=== PATIENT | male | born 1950 | race Caucasian/White ===

== ENCOUNTER 2016-08-11 10:47 | Outpatient (CLI) | payer MEDICARE, OTHER | END 2016-08-11 10:48 | disposition home or self-care (01) | DX: G47.33 Obstructive sleep apnea (adult) (pediatric) (principal) | CPT/HCPCS: 99214; G0463 ==

== ENCOUNTER 2017-12-15 13:28 | Outpatient (CLI) | payer MEDICARE, OTHER | END 2017-12-15 13:29 | disposition home or self-care (01) | LOC: SC 13:28 | PROVIDERS: ATTEND Nurse Practitioner Family | DX: G47.33 Obstructive sleep apnea (adult) (pediatric) (principal); I10 Essential (primary) hypertension; K21.9 Gastro-esophageal reflux disease without esophagitis | CPT/HCPCS: 99214; G0463; 99212 ==

== ENCOUNTER 2018-10-25 10:14 | Outpatient (CLI) | payer MEDICARE, OTHER | END 2018-10-25 10:15 | disposition home or self-care (01) | LOC: SC 10:14 | PROVIDERS: ATTEND Nurse Practitioner Family | DX: G47.33 Obstructive sleep apnea (adult) (pediatric) (principal) | CPT/HCPCS: 99214; G0463; 99212 ==

== ENCOUNTER 2021-05-07 13:06 | Outpatient (CLI) | payer MEDICARE, OTHER ==
[2021-05-07 13:48] VITALS: BP 134/73
--- NOTE | 2021-05-07 13:48 | SLEEP CARE CONSULTATION ---
Information from patient questionnaire entered by Liza Dominguez. I have reviewed and concur with the information entered by Liza Dominguez. This document represents the service I personally performed and the decisions made by , Trinidad Luong ARNP. History of Present Illness Service Date and Time: 05/07/2021 1306 Previous diagnosis: Mild, Obstructive Sleep Apnea-Hypopnea Syndrome AHI: 8.1 Reason for follow up: annual Equipment type: CPAP Equipment obtained from: [facility] (getting supplies as needed) Mask style: Nasal Backup mask available: Yes (old mask) Last cushion change: Wednesday Prior sleep studies: Yes Year and Where: 2014 [facility] Type of Sleep Study: Polysomnography HPI additional information: GHADA VARGHESE was diagnosed to have mild, AHI 8.1, obstructive sleep apnea- hypopnea syndrome and returned today for CPAP therapy annual follow-up. Sleep Study - Results Prior sleep studies: Yes Year and Where: 2014 [facility] CPAP Compliance Data - Data Reviewed with Patient Average duration of nightly device use: 8 hours 17 minutes Compliance rate %: 98.9 Current pressure setting (cmH2O): 7 Humidity settin Average residual AHI: 1.1 Average large leak: 3 seconds Subjective Missed days of use due to: reports: travel Patient concerns: denies: aerophagia, mask discomfort, air blowing in eyes, mask leak noise, condensation in mask/hose, nasal congestion, dry mouth, nose, throat, epistaxis, other Observed to snore while using device: No Current pressure setting perceived as: comfortable On therapy, patient: reports: sleeping better, awakening more refreshed, being more awake and alert during the day, more rested overall. denies: drowsiness while driving Initial [place] Sleepiness Scale score: 11 Current [place] Sleepiness Scale score: 4 Allergies and Home Medications Home medication list reviewed: Yes (Amlodipine 5 mg) Review of Systems Review of systems same as previous: Yes (Knee replacement in May 2021) Physical Exam Blood Pressure: 134/73 Cuff size: wrist Heart Rate: 52 O2 Saturation: 98 Height: 5 ft 7 in Weight: 180 lb (with clothes/shoes) Body Mass Index: 28.1 BMI Classification: Overweight Impression and Plan 1. Obstructive Sleep Apnea-Hypopnea Syndrome, mild, with good treatment compliance and good apnea control. On CPAP therapy, the patient has better sleep quality and is more rested overall. Patient has no issues or concerns with CPAP use and is very satisfied with his CPAP therapy. I informed the patient that [employer] has a recall on several devices like the patients machine. Patient was encouraged to register their device online with [employer] for the recall to see if their device is affected. If their device is affected they should start a claim. Patient denies any black particles seen in machine or hoses, any unusual odors coming from device. Patient has not experienced any physical symptoms such as upper airway irritation, headache, skin or eye irritation, asthma, nausea/vomiting, difficulty breathing or chest pain. Patient informed that they may use an inline CPAP filter that they can obtain online to reduce chance of any particles being inhaled or ingested. We discussed thoroughly the health risks of not using the CPAP versus continuing use with the filter in place. If patient is not able to sleep due to waking up choking, gasping for air or other respiratory distress that they may decide to continue using it until it is either replaced or repaired. Since the patients current machine is at least 5 years old the patient is opting to update their device with a device that is not on the recall. Patient was encouraged to lose weight for their overall health and to reduce apneas. Patient voiced understanding and agreement with plan. Patient's apnea severity and rationale for treatment to reduce apnea, improve sleep quality and reduce cardiovascular and cerebrovascular events was reviewed. I also reviewed the benefit of consistent device use of CPAP for hypertension. * Continue CPAP pressure at 7 cmH2O * Update device * Update supplies * Notify me if snoring with mask or feeling that the pressure is too much or too little * Attempt to lose weight * Call this office if any problems using CPAP * Return for follow up one month after obtaining new device, or sooner if concerns arise Counseling Topics: Spare mask, Weight loss health impact Visit Type: In Office Time Spent with Patient (minutes): 21 Provider Statement: I spent 100% of the Face to Face Visit with the patient with greater than 50% spent counseling the patient and coordination of care.
== END 2021-05-07 13:07 | disposition home or self-care (01) ==
LOC: SC 13:06
PROVIDERS: ATTEND Nurse Practitioner Family
DX: G47.33 Obstructive sleep apnea (adult) (pediatric) (principal)
CPT/HCPCS: 99213; G0463; 99212

== ENCOUNTER 2022-10-22 13:33 | Outpatient (CLI) | payer MEDICARE, OTHER ==
[2022-10-22 14:06] VITALS: BP 128/64
--- NOTE | 2022-10-22 14:06 | SLEEP CARE CONSULTATION ---
Information from patient questionnaire entered by Klaudia Rogers. I have reviewed and concur with the information entered by Klaudia Rogers. This document represents the service I personally performed and the decisions made by me, Trinidad Luong ARNP. History of Present Illness Service Date and Time: 10/22/2022 1333 Previous diagnosis: Mild, Obstructive Sleep Apnea-Hypopnea Syndrome AHI: 8.1 Reason for follow up: annual (LAST SEEN 04/2021) Equipment type: CPAP (Resmed Airsense 11 s/u 06/2021) Equipment obtained from: Other ([facility]; getting supplies as needed) Mask style: Nasal Mask brand: Respironics (Dreamwear) Backup mask available: Yes (old mask) Last cushion change: 1 week, every Wednesday Prior sleep studies: Yes Year and Where: 2014 [facility] Type of Sleep Study: Polysomnography HPI additional information: GHADA VARGHESE was diagnosed to have mild, AHI 8.1, obstructive sleep apnea- hypopnea syndrome and returned today for CPAP therapy annual follow-up. Sleep Study - Results Type of Sleep Study: Polysomnography Prior sleep studies: Yes Year and Where: 2014 [facility] CPAP Compliance Data - Data Reviewed with Patient Average duration of nightly device use: 8 hours 52 minutes Compliance rate %: 99 (180/180 day used) Current pressure setting (cmH2O): 7 Average residual AHI: 0.6 Central apnea: 0.2 Obstructive apnea: 0.2 Hypopnea: 0.2 Average large leak: 0.6 L/min Subjective Patient concerns: reports: mask leak noise. denies: aerophagia, mask discomfort, air blowing in eyes, condensation in mask/hose, nasal congestion, dry mouth, nose, throat, epistaxis Observed to snore while using device: No Current pressure setting perceived as: comfortable On therapy, patient: reports: sleeping better, awakening more refreshed, being more awake and alert during the day, more rested overall. denies: drowsiness while driving Initial [place] Sleepiness Scale score: 11 Current [place] Sleepiness Scale score: 5 (10/22/22) Allergies and Home Medications Known drug allergies: Yes (loperamide) Drug allergies reviewed: Yes Home medication list reviewed: Yes (magnesium) Review of Systems Review of systems same as previous: No (bilateral cataracts removed; New right knee 18 months ago) Physical Exam Vital signs obtained and entered by: KLAUDIA Jaramillo MA Blood Pressure: 128/64 (LEFT ARM) Cuff size: regular Heart Rate: 53 O2 Saturation: 98 Height: 5 ft 7 in Weight: 187 lb 12.8 oz Body Mass Index: 29.4 BMI Classification: Overweight Impression and Plan 1. Obstructive Sleep Apnea-Hypopnea Syndrome, mild, with good treatment compliance and good apnea control. On CPAP therapy, the patient has better sleep quality and is more rested overall. Patient has significant improvement of their sleep apnea and is satisfied with current CPAP therapy. Patient denies problems with oral dryness, nasal congestion, epistaxis, skin irritation or aerophagia. I will update prescription for supplies and we will follow up with him next year. Patient's apnea severity and rationale for treatment to reduce apnea, improve sleep quality and reduce cardiovascular and cerebrovascular events was reviewed. I also reviewed the benefit of consistent device use of CPAP for hypertension. 2. Overweight, unspecified. Currently patients BMI is 29.4. Obesity increases the risk of apnea, CPAP pressure requirements and overall health risks especially cardiovascular and diabetes. Thus patient is advised to continue to try to lose weight. * Continue CPAP pressure at 7 cmH2O * Update supplies * Notify me if snoring with mask or feeling that the pressure is too much or too little * Attempt to lose weight * Call this office if any problems using CPAP * Return for follow up in 1 year, or sooner if concerns arise Counseling Topics: Spare mask, Weight loss health impact Visit Type: In Office Time Spent with Patient (minutes): 10 Provider Statement: I spent 100% of the Face to Face Visit with the patient with greater than 50% spent counseling the patient and coordination of care.
== END 2022-10-22 13:34 | disposition home or self-care (01) ==
LOC: SC 13:33
PROVIDERS: ATTEND Nurse Practitioner Family
DX: G47.33 Obstructive sleep apnea (adult) (pediatric) (principal); E66.3 Overweight; Z68.29 Body mass index [BMI] 29.0-29.9, adult
CPT/HCPCS: 99212; G0463

== ENCOUNTER 2023-10-26 12:48 | Outpatient (CLI) | payer MEDICARE, OTHER ==
--- NOTE | 2023-10-26 13:13 | Sleep Patient Instructions ---
Sleep Center Visit Summary - Patient Visit Information Reason for Visit: Annual follow-up - Patient Instructions Additional Instructions: You will continue with CPAP therapy with pressure set at 7 cmH2O. A supply prescription will be updated with your DME. We encourage you to continue to try to lose weight. Please follow up with the sleep care office in 1 year. - Clinic Information Contact: [facility] [address] [place] [address] [email or web address] T: [phone]
--- NOTE | 2023-10-26 13:17 | SLEEP CARE CONSULTATION ---
Information from patient questionnaire entered by Silvina Rogers. I have reviewed and concur with the information entered by Silvina Rogers. This document represents the service I personally performed and the decisions made by me, Trinidad Luong ARNP. History of Present Illness Service Date and Time: 10/26/2023 1248 Previous diagnosis: Mild, Obstructive Sleep Apnea-Hypopnea Syndrome AHI: 8.1 (2014) Reason for follow up: annual (LAST SEEN 09/2022) Equipment type: CPAP (Resmed Airsense 11 s/u 06/2021) Equipment obtained from: Other ([facility]; getting supplies as needed) Mask style: Nasal Mask brand: Respironics (Dreamwear) Backup mask available: Yes Last cushion change: 3 days Prior sleep studies: Yes Year and Where: 2014 [facility] Type of Sleep Study: Polysomnography HPI additional information: GHADA VARGHESE was diagnosed to have mild, AHI 8.1, obstructive sleep apnea- hypopnea syndrome and returned today for CPAP therapy annual follow-up. Sleep Study - Results Type of Sleep Study: Polysomnography Prior sleep studies: Yes Year and Where: 2014 [facility] CPAP Compliance Data - Data Reviewed with Patient Average duration of nightly device use: 8 HRS 41 MINS Compliance rate %: 98 (10/22/22-10/21/23; 360/365 days used) Current pressure setting (cmH2O): 7 Average residual AHI: 0.6 Central apnea: 0.1 Obstructive apnea: 0.2 Hypopnea: 0.2 Average large leak: 0 L/min Subjective Missed days of use due to: reports: other (power outage) Patient concerns: reports: dry mouth, nose, throat (dry mouth). denies: aerophagia, mask discomfort, air blowing in eyes, mask leak noise, condensation in mask/hose, nasal congestion, epistaxis Observed to snore while using device: Yes (slightly, according to ; possibly when he is on back) Current pressure setting perceived as: comfortable On therapy, patient: reports: sleeping better, awakening more refreshed, being more awake and alert during the day, more rested overall. denies: drowsiness while driving Initial [place] Sleepiness Scale score: 11 Current [place] Sleepiness Scale score: 7 Allergies and Home Medications Known drug allergies: Yes (as listed) Drug allergies reviewed: Yes Home medication list reviewed: Yes (no changes) Allergy and home medication list: Allergies loperamide Allergy (Verified 10/22/23 10:29) Review of Systems Review of systems same as previous: Yes (no changes) Physical Exam Vital signs obtained and entered by: TRINIDAD YOUNG Blood Pressure: 139/74 Cuff size: regular (left arm) Heart Rate: 50 O2 Saturation: 98 Height: 5 ft 7 in Weight: 189 lb 3.2 oz Weight change since last visit: 2 lb gain Body Mass Index: 29.6 BMI Classification: Overweight Impression and Plan 1. Obstructive Sleep Apnea-Hypopnea Syndrome, mild, with good treatment compliance and good apnea control. On CPAP therapy, the patient has better sleep quality and is more rested overall. Patient has significant improvement of their sleep apnea and is satisfied with current CPAP therapy. Patient denies problems with nasal congestion, epistaxis, skin irritation or aerophagia. Patient's apnea severity and rationale for treatment to reduce apnea, improve sleep quality and reduce cardiovascular and cerebrovascular events was reviewed. I also reviewed the benefit of consistent device use of CPAP for hypertension. 2. Overweight, unspecified. Currently patients BMI is 29.6. Obesity increases the risk of apnea, CPAP pressure requirements and overall health risks especially cardiovascular and diabetes. Thus patient is advised to lose weight. * Continue CPAP pressure at 7 cmH2O * Update supply prescription * Notify me if snoring with mask or feeling that the pressure is too much or too little * Attempt to lose weight * Call this office if any problems using CPAP * Return for follow up in 12 months, or sooner if concerns arise Counseling Topics: Spare mask, Weight loss health impact Prescriptions: Device supplies Follow up with Sleep Care in: 1 year Visit Type: In Office Time Spent with Patient (minutes): 20 Provider Statement: I spent 100% of the Face to Face Visit with the patient with greater than 50% spent counseling the patient and coordination of care.
[2023-10-26 13:19] VITALS: BP 139/74; O2SAT 98
== END 2023-10-26 12:49 | disposition home or self-care (01) ==
LOC: SC 12:48
PROVIDERS: ATTEND Nurse Practitioner Family
DX: G47.33 Obstructive sleep apnea (adult) (pediatric) (principal); E66.3 Overweight; Z68.29 Body mass index [BMI] 29.0-29.9, adult
CPT/HCPCS: 99213; G0463; 99212